=== PATIENT | male | born 1970 | race Caucasian/White ===

== ENCOUNTER 2024-08-23 10:27 | Outpatient (CLI) | payer BC, SELFPAY ==
--- OUTSIDE RECORDS SUMMARY | 2024-08-23 10:31 | XMS_ITS | Clinical Summary ---
Author Organization [facility] Address [place], [place] [address] Care Team Providers Care Bellman Name Role Phone Pcp, No Primary Care Provider Unavailabl e Allergies No known active allergies Medications Medication Sig Dispensed Refills Start Date End Date Status tiZANidine (ZANAFLEX) 2 mg tablet Take 2 tablets by mouth at bedtime. 0 05/09/2013 Active cyanocobalamin (VITAMIN B-12) 1,000 mcg tablet Take 2 tablets by mouth once daily. 0 09/06/2013 Active Potassium Gluconate 595 (99) mg tablet Take by mouth once daily. 0 09/06/2013 Active cholecalciferol (VITAMIN D) 1,000 unit capsule Take 2 capsules by mouth once daily. 0 09/06/2013 Active vitamin e 1,000 unit cap Take 1 capsule by mouth once daily. 0 09/06/2013 Active sildenafil citrate (VIAGRA) 50 mg tabletIndications:ED (erectile dysfunction) Take 1 tablet by mouth once daily if needed for Erectile Dysfunction. Take 30min to 4 hours before sexual activity. Max 100mg/24hr 5 tablet 5 09/06/2013 Active Active Problems Problem Noted Date Diagnosed Date Spastic paraplegia, hereditary Immunizations Name Administration Dates Next Due Influenza, IIV3 (Age >=3 years) 07/13/2013,08/21 Tdap 02/27/2009 Family History Medical History Relation Name Comments Other Father migrines Heart Disease Maternal Grandfather Cancer Maternal Grandmother ? type Other Mother spastic parapar esis Heart Disease Paternal Grandfather Relation Name Status Comments Father Maternal Grandfather Maternal Grandmother Mother Paternal Grandfather Social History Tobacco Use Types Packs/Day Years Used Date Smoking Tobacco: Never Smokeless Tobacco: Never Tobacco Cessation:Counseling Given: No Alcohol Use Standard Drinks/Week Comments Yes 3.3 (1 standard drink = 0.6 oz p ure alcohol) Sex and Gender Information Value Date Recorded Sex Assigned at Not on file Gender Identity Not on file Sexual Orientation Not on file Obstetrics History Last Filed Vital Signs Vital Sign Reading Time Taken Comments Blood Pressure 118/84 03/02/2014 11:39 AM CDT Pulse 78 03/02/2014 11:39 AM CDT Temperature 36.8 C (98.2 F) 03/02/2014 11:39 AM CDT Respiratory Rate - - Oxygen Saturation - - Inhaled Oxygen Concentration - - Weight 91.5 kg (201 lb 12.8 oz) 014 11:39 AM CDT Height 170.2 cm (5' 7) 05/09/2013 8:39 AM CDT Body Mass Index 31.61 05/09/2013 8:39 AM CDT Plan of Treatment Health Maintenance Due Date Last Done Comments Depression screening for age 12+ 1982 HIV for age 15-65 1985 BMI (ht and wt on same day) for age 18+ 1988 Hepatitis C screening for ag e 18-79 1988 Colonoscopy through age 75 2015 Lipids for age 45-75 05/09/2018 05/09/2013, 08/26/2010 Tetanus booster 02/27/2019 02/27/2009 Zoster (shingles) series for age 50+ (1 of 2) 2020 COVID-19 vaccine series ( - 2023-25 season) 2024 Influenza for age 50-64 06/04/2024 07/13/20 13, 08/21/2010 Tdap Completed 02/27/2009 Pneumococcal series for age 6-64 Aged Out No longer eligible b ased on patient's age to complete this topic Procedures Procedure Name Priority Date/Time Associated Diagnosis Comments LIPID PANEL Routine 05/09/2013 9:18 AM CDT Routine general medical examination at a health care facility Screening for lipoid disorders from Last 3 Months or Most Recently Relevant to Health Maintenance Results * (ABNORMAL) LIPID PANEL (05/09/2013 9:18 AM CDT) [facility] Sarah CHOLESTEROL,TOTA L 213(H) 100 - 199 mg/dL [facility] 85 <150 mg/dL [facility] HDL CHOLESTEROL 62 >40 mg/dL [facility] CHOL/HDL RATIO 3.44 <4.50 [facility] NON-HDL CHOLESTEROL 151 Undefined mg/dL [facility] LDL CHOLESTEROL 134(H) <131 mg/dL [facility] PATIENT STATUS Fasting [facility] Blood specimen (specimen) BLOOD SPECIMEN / Unknown 05/09/2013 9:18 AM CDT 05/09/2013 9:13 AM CDT Gustavo Dubose MD CHEMISTRY [facility] [place]IP [id number] [place] [id number] from Last 3 Months or Most Recently Relevant to Health Maintenance Care Teams Bellman Relationship Specialty Start Date End Date Pcp, No . PCP - General 04/09/15
--- OUTSIDE RECORDS SUMMARY | 2024-08-23 10:31 | XMS_ITS | Data Portability ---
Author Organization [place] - [facility], [facility] - OP Address [address] [place] [address] Assessment Encounter Date Assessment Date Assessment LastModified by Organization Details LastModified Time 05/25/2023 05/25/2023 Please answer th e following questions pertaining to the time that you had felt the most relief from the injection, even if it was very short term. The injection that you had was diagnostic, which means that it does not typically offer instructor dramatic arts relief. Even if you had 30 min of relief, please base your answers off of those 30 minutes. 1.) At the time that you felt the most relief from this injection what % of pain relief would you say you had? 100% relief at times. Morning are the best and pain increases by the evening. 2.) How would you have rated your pain on a scale of 0/10 prior to the injection? 3/10 3.) At the time that you had the most relief from this injection, how would you have rated your pain on a scale of 0/10? 0/10 4.) Have you noticed a change in your ADLs (activities of daily living)? Yes, pt is able to do all activities with less pain. 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 - All questions have been answered. We have talked about all the treatment options and have agreed upon the following: - Instructed to avoid strenuous activity and heavy lifting - Pain control: recommended course of OTC NSAIDs if no medical contraindications If pain persists, may inquire about Robaxin and Medrol Dose Pack (to take for 5 days straight) followed by Bruno by PCP - B/L L4-5, L5-S1 MBB RFA Nature of the surgery, risks, and alternatives were discussed with patient at length. All the questions were answered. Risks mentioned and discussed with patient included but were not limited to risk of neurological injury, vascular injury, infection, uncontrollable bleeding and excessive blood loss and hardware complications if they are used such as pedicle screw malpositioning. Possibility of persistent pain and unsuccessful outcome was discussed. Possibilities of medical complications such as heart attacks, pneumonia, stroke, kidney failure, blood clots and possibility of other types of unforeseeable complications were discussed. Given the persistent symptoms and disability patient would like to proceed with the proposed surgical intervention despite the potential risks involved with the proposed surgery. - All questions answered to the patient's satisfaction - Will call the clinic or return if any interim concerns - F/u for RFA with Dr Norma [email or web address] Not available 07/02/2023 10:57:34 09/28/2023 09/28/2023 Where are you currently residing for your post-op recovery? Patient is currently at home Have you noticed any increased warmth, swelling, or irritation at, or surrounding the incision site? Patient denies any increased warmth, swelling or irritation at the incision site Patient currently rate s pain at /10. 4-5/10 Would you say that your pain is reasonable and adequately controlled? Not different since before surgery. How often are you using pain medication? Current methods of pain relief include: Tylenol Q6hrs. Have you had a bowel movement since surgery? Yes Do you have any questions about how to take care of yourself or future follow-ups now that you are home? All questions answered Will schedule follow-up today. Reviewed signs and symptoms of infection with the patient. Addressed the importance of reaching out to the clinic if there is any increased pain or if any other problem arises. Discussed calling RX refill line at [phone] for any refills on prescribed medications, as well as allowing up to 3 business days for RX to be available for pick up operator at the pharmacy. Patient verbalized understanding. [email or web address] Not available 09/28/2023 11:39:50 10/25/2023 10/25/2023 Assessment: Clinical Dx PO: s/p 09/24/23 DIPAK L4/L5-L5/S1 RFA --> doing well, no complications Radiological Dx --> Mild L4-5 disc and advanced right/mild-moderate left facet degeneration, with ligamentous hypertrophy and 6 mm AP by 15 mm SI right intraspinal synovial cyst. 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 - at this point he has no symptoms - F/u with new MRI if symptoms persist Plan: -Discussed the patient's physical exam and reviewed their Radiographic and imaging with them in detail. - All questions have been answered. We have talked about all the treatment options and have agreed upon the following: - All questions answered to the patient's satisfaction - Will call the clinic or return if any interim concerns - Images: L MRI - Activities: WBAT, Instructed to BLTs, avoid strenuous activity and heavy lifting - referral for PM&R - Pain control: recommended course of OTC pain meds if no medical contraindications - FU: Patient to return clinic 3 weeks after PT with images to discuss results PRN. [email or web address] Not available 10/27/2023 12:36:21 Plan of Treatment Reminders Order Date Submit Date Provider Last Modified By Organization Details Last Modified Time Details Appointments None record ed. Lab None record ed. Referral None record ed. Procedures None record ed. Surgeries None record ed. Imaging None record ed. Medication Orders None record ed. Patient TargetsNo targets recorded. Patient InstructionsNo instructions recorded. Reason for Referral None Reported. 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 [employer] 09:20:16 Problem Notes None recorded. Procedures Surgical History Date Name Laterality Status Provider Name and Address Organization Details Recorded Time 06/18/20 23 Trigger Point Injection completed Marielle Green [place] [employer] 06/18/2023 13:00:57 06/04/20 23 Joint Injection cancelled Nathan SEYMOUR - [facility] 05/26/2023 14:09:29 05/21/20 23 Joint Injection completed Cinthia William [place] - [facility] 05/12/2023 11:51:26 10/21/19 23 Lumbar Acupuncture completed Siria Carter [place] - [facility] 10/21/2022 11:27:16 10/09/19 23 Lumbar Acupuncture completed Siria Carter [place] - [facility] 10/09/2022 12:55:27 09/14/20 22 Lumbar Acupuncture completed Edinson Diamond [place] - [facility] 09/14/2022 10:50:39 09/04/20 22 Lumbar Acupuncture completed Jesus Fleming [place] - [facility] 09/04/2022 10:33:33 08/26/20 22 Lumbar Acupuncture completed Edinson Diamond [place] - [facility] 08/26/2022 09:59:32 08/12/20 22 Lumbar Acupuncture completed Jesus Fleming [place] - [facility] 08/12/2022 17:18:05 07/22/20 22 Joint Injection completed Luis Armando Dee [place] - [facility] 07/29/2022 10:45:25 07/13/20 22 Joint Injection completed Luis Armando Dee [place] - [facility] 07/13/2022 17:58:53 Imaging Results None recorded. Procedure Notes None recorded. Medical Equipment None Reported. Allergies No known drug allergies Medications Name Sig Start Date Stop Date Status Note LastModified by Organization Details LastModified Time meloxicam 15 mg tablet TAKE ONE TABLET BY MOUTH EVERY DAY active Not Available Not Available No t Available prednisone 20 mg tablet TAKE 1 TABLET BY MOUTH TWICE A DAY FOR 30 DAYS active Not Available Not Available No t Available lidocaine 5 % topical patch active Not Available Not Available Not Available methylpredni solone 4 mg tablets in a dose pack TAKE BY MOUTH DIRECTED PER PACKAGE INSTRUCTION S active Not Available Not Available No t Available Vitals Date Recorded Body height Provider Name an d Address Organization Details Last Updated DateTime 06/04/2023 170.18 cm [facility] 06/04/2023 09:54:06 Date Recorded Body height Provider Name an d Address Organization Details Last Updated DateTime 06/18/2023 170.18 cm [facility] 06/18/2023 09:37:34 Date Recorded Body height Body mass index (BMI) Body weight Provider Name and Address Organization Details Last Updated DateTime 07/02/2023 170.18 cm 34.5 kg/m2 35779.32 g Sydnee Peraza [place] - [facility] 07/02/2023 09:10:34 Date Recorded Body height Body mass index (BMI) Body weight Provider Name and Address Organization Details Last Updated DateTime 10/25/2023 170.18 cm 35.2 kg/m2 083714.28 g Jennifer Andujar [place] - [facility] 10/25/2023 09:08:30 Social History Question Answer Notes LastModified by Organizat ion Details LastModified Time Tobacco Smoking Status Former Smoker Mona Borrego lorena [place] - [facility] 07/01/2022 09:24:15 What Is Your Level Of Alcohol Consumption? Moderate Information not available 07/01/2022 How Many Times Per Week Do You Consume Alcohol? 1-2 Times Per Week Information not available 04/05/2023 Are You Currently Employed? Yes Information not available 07/01/2022 What Is Your Occupation? [employer] Information not available 07/01/2022 When Did You Quit Smoking? 16+yearssince lastcigarette Information not available 07/01/2022 What Was The Date Of Your Most Recent Tobacco Screening? 07/02/2023 [email or web address] Information not available 07/02/2023 Do You Use Any Illicit Or Recreational Drugs? No Information not available 07/01/2022 Do You Or Have You Ever Used Any Other Forms Of Tobacco Or Nicotine? No Information not available 04/05/2023 Sex: Unknown Functional Status None recorded. Mental Status None recorded. Family History Relationship Description Onset Age of this Age Resolved Age Notes LastModified by Organization Details LastModified Time Maternal Grandfather Myocardial infarction [email or web address] Not available 07/01 09:20:43 Paternal Grandfather Myocardial infarction [email or web address] Not available 07/01 09:20:43 Medical History Condition Response Gout N Blood Diseases N Blood Transfusion N MRSA N Hernia N Head Trauma/Injury N Lung Disease N Depression N COPD N Developmental or Behavioral Disorders N Pacemaker N Difficulty Swallowing N Anesthesia Complications N Cystic Fibrosis N Anxiety Disorder N Muscle, Joint, or Bone Problems N Obesity N Vision or Eye Problems N Arthritis N Blood Clot N Stroke N Bladder or Kidney Problems N High Cholesterol N Headaches N Fibromyalgia N Allergies/Hayfever N Parkinson's Disease N Ear or Hearing Problems N Hospitalizations N GI Problems N ADD/ADHD N Skin Problems N Anemia N PTSD N Multiple Sclerosis N Meningitis N Heart Attack (AK) N Diabetes N Immunocompromised N Hepatitis/Liver Disease N Bleeding Disorder N Cancer/Tumors N Heart Murmur N Cerebral Palsy N AIDS/HIV N Congestive Heart Failure (CHF) N Abuse/Domestic Violence N Asthma N Peripheral Vascular Disease N Epilepsy/Seizures N AFib N Seizures N Reflux/GERD N Sleep Apnea N Thyroid Disorder N Aneurysm N Neuropathy N Pulmonary Embolism N Hypertension N Autism Spectrum Disorder (ASD) N Osteoporosis N Past Encounters Encounter ID Performer Location Encounter Start Date Encounter Closed Date Diagnosis/Indication Diagnosis SNOMED-CT Code Diagnosis ICD10 Code [id number] Luis Armando Dee [facility] [address] [place] [address] 07/01/2022 08:50:12 07/02/2022 15:00:38 Spastic paraparesis 329679731 G82.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 75816818 G11.4 Cauda equi na syndrome with neurogenic urinary bladder 80658208 G83.4 Myofascial pain syndrome of lumbar spine 1663450002 97043 M79.18 Arthritis of facet joint of lumbar spine 8803517766 9982212 M46.96 Low back pain 014453513 M43.06 M48.062 M71.38 [id number] Luis Armandoluis Dee [facility] [address] [place] [address] [place] [address] 07/13/2022 16:14:59 07/14/2022 08:59:12 [id number] Luis Armandoluis Dee [facility] [address] [place] [address] [place] [address] 07/22/2022 14:58:45 07/29/2022 11:29:53 [id number] Malu Chicas [facility] [address] [place] [address] [place] [address] 07/30/2022 09:51:13 07/31/2022 14:37:52 [id number] Luis Armando Dee [facility] [address] [place] [address] [place] [address] 08/14/2022 08:58:05 08/17/2022 14:22:20 Spastic paraparesis 741410146 G82.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 74758274 G11.4 Cauda equi na syndrome with neurogenic urinary bladder 30742155 G83.4 Myofascial pain syndrome of lumbar spine 2844895271 94154 M79.18 Arthritis of facet joint of lumbar spine 3936119147 9279911 M46.96 Low back pain 851836909 M43.06 M48.062 M71.38 [id number] Luis Armando Dee [facility] [address] [place] [address] [place] [address] 08/12/2022 15:52:35 08/14/2022 08:52:53 [id number] Luis Armando Dee [facility] [address] [place] [address] [place] [address] 08/26/2022 08:57:55 08/28/2022 15:04:53 [id number] Luis Armando Dee [facility] [address] [place] [address] [place] [address] 09/04/2022 09:27:13 09/04/2022 17:11:37 [id number] Luis Armando Dee [facility] [address] [place] [address] [place] [address] 09/14/2022 09:24:34 09/15/2022 13:47:22 [id number] Luis Armando Dee [facility] [address] [place] [address] [place] [address] 09/17/2022 09:39:27 09/21/2022 09:57:32 Spastic paraparesis 572809553 G82.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 57315462 G11.4 Cauda equi na syndrome with neurogenic urinary bladder 30205569 G83.4 Myofascial pain syndrome of lumbar spine 6500444078 80629 M79.18 Arthritis of facet joint of lumbar spine 7656274999 4765248 M46.96 Low back pain 985235395 M43.06 M48.062 M71.38 [id number] Evangelist Prieto MD [facility] [address] [place] [address] [place] [address] 09/21/2022 08:56:55 09/22/2022 10:07:08 Degeneration of intervertebral disc 96875258 M51.16 M51.26 M48.062 M47.896 M53.88 [id number] Luis Armando Dee [facility] [address] [place] [address] [place] [address] 10/09/2022 11:40:12 10/12/2022 10:57:46 [id number] Luis Armando Dee [facility] [address] [place] [address] [place] [address] 10/21/2022 10:24:58 10/22/2022 09:50:27 [id number] Luis Armando Dee [facility] [address] [place] [address] [place] [address] 11/02/2022 08:59:30 11/02/2022 16:18:58 Spastic paraparesis 502427270 G82.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 39030984 G11.4 Cauda equi na syndrome with neurogenic urinary bladder 03297283 G83.4 Myofascial pain syndrome of lumbar spine 6749683349 12972 M79.18 Arthritis of facet joint of lumbar spine 8176870573 7772892 M46.96 Low back pain 667201460 M43.06 M48.062 M71.38 [id number] Luis Armando Dee [facility] [address] [place] [address] [place] [address] 12/07/2022 09:22:20 12/07/2022 17:36:43 Spastic paraparesis 588150372 G82.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 33164586 G11.4 Cauda equi na syndrome with neurogenic urinary bladder 07442978 G83.4 Myofascial pain syndrome of lumbar spine 2853601191 94031 M79.18 Arthritis of facet joint of lumbar spine 2787681142 3845282 M46.96 Low back pain 938979205 M43.06 M48.062 M71.38 [id number] Luis Armando Dee [facility] [address] [place] [address], [place] [address] 01/18/2023 09:27:31 01/19/2023 09:29:59 Spastic paraparesis 994416015 G82.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 56673595 G11.4 Cauda equi na syndrome with neurogenic urinary bladder 93867622 G83.4 Myofascial pain syndrome of lumbar spine 4506383766 17597 M79.18 Arthritis of facet joint of lumbar spine 4221627606 3920807 M46.96 Low back pain 929206030 M43.06 M48.062 M71.38 [id number] Sydnee bautista [facility] [address] [place] [address], [place] [address] 04/05/2023 09:34:21 04/07/2023 11:37:24 Chronic low back pain 918124644 M54.50 M51.36 [id number] Kessiena Aya [facility] [address] [place] [address], [place] [address] 05/21/2023 09:19:52 05/24/2023 08:58:17 [id number] Kylah Em [facility] [address] [place] [address], [place] [address] 05/28/2023 16:31:49 05/28/2023 16:35:54 [id number] Kessiena Aya [facility] [address] [place] [address], [place] [address] 06/18/2023 08:56:03 06/21/2023 10:43:31 [id number] Kessiena Aya [facility] [address] [place] [address], [place] [address] 07/02/2023 08:51:39 07/02/2023 12:52:47 [id number] NELDA CARDOSO [facility] [address] [place] [address] [place], [place] [address] 09/28/2023 11:37:35 09/28/2023 11:47:14 [id number] Onofresavmanish Green [facility] [address] [place] [address] [place], [place] [address] 10/25/2023 08:51:51 10/26/2023 10:01:47 Health Concerns Section Related Observation LastModified by Organization Detai ls LastModified Time None Recorded Concern Status LastModified by Organization Details LastModified Time None Recorded Advance Directives Directive None Recorded Payers Encounter Date Sequence Insurance Name Policy Number Policy Albert Covered Member ID Albert Member ID Guarantor Name 05/25/2023 1 [place] [id number] Kevon Thomas [id number] Kevon Thomas 06/18/2023 1 [place] [id number] Kevon Thomas [id number] Kevon Thomas 07/02/2023 [place] [id number] Kevon Thomas [id number] Kevon Thomas 09/28/2023 1 [place] [id number] Kevon Thomas [id number] Kevon Thomas 10/25/2023 1 [place] [id number] Kevon Thomas [id number] Kevon William Notes Date Note Type Note Provider Name and Address Organization Details Recorded Time 07/02/2023 text/html Chief Complaint: F/u S/p MBB inj x 2 History of Present Illness:The patient presents as a follow up. He states that the injections provided significant pain relief, however the pain has now re-occurred and limits his ability to do ADLs and PT. He now has persistent lower back pain, including intermittent shooting sensations down the right leg. Patient experienced minimal tenderness at the injection site of a recent procedure. Although the pain initially subsided, it has since returned, fluctuating between minimal to moderate intensity, and generally worsening at nighttime.No red flag signs/symptoms. No constitutional symptoms. No significant changes in medical condition. No other complaints voiced HPI 04/05/23The patient is a 52 year old male who presents for initial evaluation of low back pain.Today the patient reports fluctuating low back pain rated 3/10 that radiates down the anterior right leg and groin. Standing and walking a few steps aggravates, sitting alleviates. (R>L) LBP> groin pain. The pain has persisted for years but worsened April 2022. Patient reports hearing crackles in low back when he is lying down and turns, but there is no pain. He ambulates with two walking sticks. HE does not use them alot at home; Patient reports attending PT at [facility] weekly that provides some relief. Patient also attends chiropractic therapy once month and hasn't notice a difference. Patient denies cauda equina syndrome. 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 Interval events (since 12/07/22):Today the patient reports that he has been going to physical therapy for PT but reports that he has not done any gait training. He reports that he has been going to [facility] in [place]. He states his therapists are Adalid and Chanel. He reports that he was able to get up and use the restroom at a restaurant without his walking sticks around 6 weeks ago. He also reports that he fell around 8 weeks ago when his stick slipped on the floor. Previous HPI from 09/17/22:Today the patient reports low back pain rated 2-3/10. He notes some improvement over the past several weeks, with soreness most significant upon waking up in the morning. He typically alleviates his soreness by soaking in his jacuzzi. Overall he notes slight improvement in his pain, and he would like to maintain his already scheduled acupuncture visits, as well as his already scheduled appointment with Dr. Prieto. The patient has now done 6 weeks of PT, twice weekly (12 sessions total).Previous HPI from 11/02/22:Today the patient reports low back pain rated 1/10. He attributes the majority of his pain reduction to holistic approaches, and also reports continued PT. He has also received TPI and acupuncture since his last visit. The patient also followed with Dr. Prieto on 09/21. He is very happy with his pain management regimen at this point. The patient notes minimal pain reduction from acupuncture, but reports pain relief from other approaches.Interval Events:The patient states generally that his pain has been improved and more manageable. He rates his pain at 1-2/10. He states that he has been going on trips over several weekends which can cause his pain to spike but after a day or two the pain decreases. The patient states that his walking has not changed secondary to his pre-existing condition but has been trying to increase weight bearing on the legs and low back. He states he has been attending PT. The patient reports significant muscle tightness and nightly cramping in the bilateral calves. Marielle carrillo [employer] 07/02/2023 10:57:37 10/25/2023 text/html F/uPO: s/p 09/24 DIPAK L4/L5-L5/S1 RFA: L MR (06/15/22) in [place]: PT, Chiro, INJ: LBP HPI Patient reports intermittent soreness and pain persisting after a Radiofrequency Ablation (RFA) procedure, with pain radiating down the right leg. The patient states that the pain was more noticeable in the first few days following the RFA procedure but improved slightly with time. Pain intensity today is a 2 to 3 out of 10, with the worst being a 3 out of 10. Since the procedure, the patient has not required any pain medication beyond Tylenol, last taken about a month after the procedure. The patient has a neurological condition that necessitates a more intensive regimen of stretches and therapy to maintain baseline functionality. The patient's pain consistently radiates down the right side. No red flag signs/symptoms. No constitutional symptoms. No significant changes in medical condition. No other complaints voiced Marielle carrillo [place] [employer] 10/27/2023 12:36:25
== END 2024-08-23 10:28 | disposition home or self-care (01) ==
LOC: LKVREF 10:28
PROVIDERS: PCP Nurse Practitioner Family; Visit Provider Nurse Practitioner Family
DX: Z00.00 Encounter for general adult medical examination without abnormal findings (principal); I10 Essential (primary) hypertension; Z13.6 Encounter for screening for cardiovascular disorders; Z12.5 Encounter for screening for malignant neoplasm of prostate
CPT/HCPCS: 80053; 80061; G0103

== ENCOUNTER 2024-09-01 13:25 | Outpatient (CLI) | payer BC, SELFPAY ==
--- OUTSIDE RECORDS SUMMARY | 2024-09-01 13:27 | XMS_ITS | Data Portability ---
Author Organization [place] - [facility], [facility] - OP Address [address] [place] [address] Assessment Encounter Date Assessment Date Assessment LastModified by Organization Details LastModified Time 05/25/2023 05/25/2023 Please answer th e following questions pertaining to the time that you had felt the most relief from the injection, even if it was very short term. 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 Even if you had 30 min [...] arises. Discussed calling RX refill line at [phone] for any refills on prescribed medications, as well as allowing up to 3 business days for RX to be available for orange picker at the pharmacy. Patient verbalized understanding. 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 Procedures Surgical History Date Name Laterality Status Provider Name and Address Organization Details Recorded Time 06/18/20 23 Trigger Point Injection completed Marielle Green [place] [facility] 06/18/2023 13:00:57 06/04/20 23 Joint Injection cancelled Nathan SEYMOUR - [facility] 05/26/2023 14:09:29 05/21/20 23 Joint Injection completed Cinthia William [place] - [facility] 05/12/2023 11:51:26 10/21/19 23 Lumbar Acupuncture completed Siria Carter [place] - [facility] 10/21/2022 11:27:16 10/09/19 23 Lumbar Acupuncture completed Siria Carter [place] - [facility] 10/09/2022 12:55:27 09/14/20 22 Lumbar Acupuncture completed Edinson Diamond [place] - [facility] 09/14/2022 10:50:39 09/04/20 22 Lumbar Acupuncture completed Jesus Fleming [place] - [facility] 09/04/2022 10:33:33 08/26/20 22 Lumbar Acupuncture completed Edinson Diamond [place] - [facility] 08/26/2022 09:59:32 08/12/20 22 Lumbar Acupuncture completed Jesus Fleming [place] [facility] 08/12/2022 17:18:05 07/22/20 22 Joint Injection completed Luis Armando Dee [place] [facility] 07/29/2022 10:45:25 07/13/20 22 Joint Injection completed Luis Armando Dee [place] [facility] 07/13/2022 17:58:53 [...] Details Last Updated DateTime 06/04/2023 170.18 cm [facility] 06/04/2023 09:54:06 Date Recorded Body height Provider Name an d Address Organization Details Last Updated DateTime 06/18/2023 170.18 cm [facility] 06/18/2023 09:37:34 Date Recorded Body height Body mass index (BMI) Body weight Provider Name and Address Organization Details Last Updated DateTime 07/02/2023 170.18 cm 34.5 kg/m2 97089.32 g Sydnee Peraza [place] - [facility] 07/02/2023 09:10:34 Date Recorded Body height Body mass index (BMI) Body weight Provider Name and Address Organization Details Last Updated DateTime 10/25/2023 170.18 cm 35.2 kg/m2 449459.28 g Jennifer Andujar [place] - [facility] 10/25/2023 09:08:30 Social [...] Condition Response Gout N Blood Diseases N MRSA N Blood Transfusion N Hernia N Head Trauma/Injury N Lung [...] Multiple Sclerosis N Meningitis N Heart Attack ([place]) N Diabetes N Immunocompromised N Hepatitis/Liver Disease [...] Diagnosis/Indication Diagnosis SNOMED-CT Code Diagnosis ICD10 Code [id number] Luis Armando Dee [facility] [address] [place] [address] 07/01/2022 08:50:12 07/02/2022 15:00:38 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 Cauda equi na syndrome with neurogenic urinary bladder 00343868 G83.4 Myofascial pain syndrome of lumbar spine 9175425407 03318 M79.18 Arthritis of facet joint of lumbar spine 0016511961 8627224 M46.96 Low back pain 062731051 M43.06 M48.062 M71.38 [id number] Luis Armandoluis Dee [facility] [address] [place] [address] [place] [address] 07/13/2022 16:14:59 07/14/2022 08:59:12 [id number] Luis Armandoluis Dee [facility] [address] [place] [address] [place] [address] 07/22/2022 14:58:45 07/29/2022 11:29:53 [id number] Malu Chicas [facility] [address] [place] [address] [place] [address] 07/30/2022 09:51:13 07/31/2022 14:37:52 [id number] Luis Armando Dee [facility] [address] [place] [address] [place] [address] 08/14/2022 08:58:05 08/17/2022 14:22:20 Spastic paraparesis 630233685 G82.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 37895082 G11.4 Cauda equi na syndrome with neurogenic urinary bladder 60103228 G83.4 Myofascial pain syndrome of lumbar spine 5398151244 55974 M79.18 Arthritis of facet joint of lumbar spine 4470672780 6894083 M46.96 Low back pain 455696745 M43.06 M48.062 M71.38 [id number] Luis Armando Dee [facility] [address] [place] [address] [place] [address] 08/12/2022 15:52:35 08/14/2022 08:52:53 [id number] Luis Armando Dee [facility] [address] [place] [address] [place] [address] 08/26/2022 08:57:55 08/28/2022 15:04:53 [id number] Luis Armando Dee [facility] [address] [place] [address] [place] [address] 09/04/2022 09:27:13 09/04/2022 17:11:37 [id number] Luis Armando Dee [facility] [address] [place] [address] [place] [address] 09/14/2022 09:24:34 09/15/2022 13:47:22 [id number] Luis Armando Dee [facility] [address] [place] [address] [place] [address] 09/17/2022 09:39:27 09/21/2022 09:57:32 Spastic paraparesis 488824510 G82.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 13581209 G11.4 Cauda equi na syndrome with neurogenic urinary bladder 06879406 G83.4 Myofascial pain syndrome of lumbar spine 5979497654 62731 M79.18 Arthritis of facet joint of lumbar spine 2243601207 1777332 M46.96 Low back pain 826186100 M43.06 M48.062 M71.38 [id number] Evangelist Prieto MD [facility] [address] [place] [address] [place] [address] 09/21/2022 08:56:55 09/22/2022 10:07:08 Degeneration of intervertebral disc 72678924 M51.16 M51.26 M48.062 M47.896 M53.88 [id number] Luis Armando Dee [facility] [address] [place] [address] [place] [address] 10/09/2022 11:40:12 10/12/2022 10:57:46 [id number] Luis Armando Dee [facility] [address] [place] [address] [place] [address] 10/21/2022 10:24:58 10/22/2022 09:50:27 [id number] Luis Armando Dee [facility] [address] [place] [address] [place] [address] 11/02/2022 08:59:30 11/02/2022 16:18:58 Spastic paraparesis 647551767 G82.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 46146469 G11.4 Cauda equi na syndrome with neurogenic urinary bladder 56179231 G83.4 Myofascial pain syndrome of lumbar spine 8029625076 73981 M79.18 Arthritis of facet joint of lumbar spine 7829151056 2828153 M46.96 Low back pain 055308420 M43.06 M48.062 M71.38 [id number] Luis Armando Dee [facility] [address] [place] [address] [place] [address] 12/07/2022 09:22:20 12/07/2022 17:36:43 Spastic paraparesis 626327784 G82.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 29868802 G11.4 Cauda equi na syndrome with neurogenic urinary bladder 88744672 G83.4 Myofascial pain syndrome of lumbar spine 9436626887 66489 M79.18 Arthritis of facet joint of lumbar spine 7511869896 3209453 M46.96 Low back pain 377841969 M43.06 M48.062 M71.38 [id number] Luis Armando Dee [facility] [address] [place] [address], [place] [address] 01/18/2023 09:27:31 01/19/2023 09:29:59 Spastic paraparesis 393753026 G82.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 04829372 G11.4 Cauda equi na syndrome with neurogenic urinary bladder 82238164 G83.4 Myofascial pain syndrome of lumbar spine 5053068231 41586 M79.18 Arthritis of facet joint of lumbar spine 9380177724 7990083 M46.96 Low back pain 548487057 M43.06 M48.062 M71.38 [id number] Sydnee bautista [facility] [address] [place] [address], [place] [address] 04/05/2023 09:34:21 04/07/2023 11:37:24 Chronic low back pain 815537404 M54.50 M51.36 [id number] Kessiena Aya [facility] [address] [place] [address], [place] [address] 05/21/2023 09:19:52 05/24/2023 08:58:17 [id number] Kylah Em [facility] [address] [place] [address], [place] [address] 05/28/2023 16:31:49 05/28/2023 16:35:54 [id number] Kessiena Aya [facility] [address] [place] [address], [place] [address] 06/18/2023 08:56:03 06/21/2023 10:43:31 [id number] Kessiena Aya [facility] [address] [place] [address], [place] [address] 07/02/2023 08:51:39 07/02/2023 12:52:47 [id number] NELDA CARDOSO [facility] [address] [place] [address] [place], [place] [address] 09/28/2023 11:37:35 09/28/2023 11:47:14 [id number] Onofresavmanish Green [facility] [address] [place] [address] [place], [place] [address] 10/25/2023 08:51:51 10/26/2023 10:01:47 Health Concerns Section Related Observation LastModified by Organization Detai ls LastModified Time None Recorded Concern Status LastModified by Organization Details LastModified Time None Recorded Advance Directives Directive None Recorded Payers Encounter Date Sequence Insurance Name Policy Number Policy Albert Covered Member ID Albert Member ID Guarantor Name 05/25/2023 1 [place] [id number] Kevon Thomas [id number] Kevon Thomas 06/18/2023 1 [place] [id number] Kevon Thomas [id number] Kevon Thomas 07/02/2023 1 [place] [id number] Kevon Thomas [id number] Kevon Thomas 09/28/2023 1 [place] [id number] Kevon Thomas [id number] Kevon Thomas 10/25/2023 1 [place] [id number] Kevon Thomas [id number] Kevon William Notes Date Note Type [...] reports that he has been going to [facility] in [place]. He states his therapists are Adalid and [...] cramping in the bilateral calves. Marielle carrillo [employer] 07/02/2023 10:57:37 10/25/2023 text/html F/uPO: s/p 09/24 [...] condition. No other complaints voiced Marielle carrillo [place] [facility] 10/27/2023 12:36:25
--- OUTSIDE RECORDS SUMMARY | 2024-09-01 13:27 | XMS_ITS | Clinical Summary ---
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 Name Role Phone Pcp, No Primary Care [...] (ABNORMAL) LIPID PANEL (05/09/2013 9:18 AM CDT) [facility] Sarah CHOLESTEROL,TOTA L 213(H) 100 - 199 mg/dL [facility] TRIGLYCERIDES 85 <150 mg/dL [facility] HDL CHOLESTEROL 62 >40 mg/dL [facility] CHOL/HDL RATIO 3.44 <4.50 [facility] NON-HDL CHOLESTEROL 151 Undefined mg/dL [facility] LDL CHOLESTEROL 134(H) <131 mg/dL [facility] PATIENT STATUS Fasting [facility] Blood specimen (specimen) BLOOD SPECIMEN / Unknown 05/09/2013 9:18 AM CDT 05/09/2013 9:13 AM CDT Gustavo Dubose MD CHEMISTRY [facility] INTERNAL ZIP [id number] [place] [id number] from Last 3 Months or Most Recently Relevant to Health Maintenance Care Teams Hand Stone Polisher Relationship Specialty Start Date End Date Pcp, No . PCP - General 04/09/15
--- NOTE | 2024-09-01 13:45 | CRLHL7_ITS ---
For Patients: As a result of the Century Cures Act, medical imaging exams and procedure reports are released immediately into your electronic medical record. You may view this report before your referring provider. If you have questions, please contact your health care provider. INDICATION: Low back pain. Spinal stenosis. TECHNIQUE: Noncontrast sagittal and axial T1, T2, and sagittal STIR sequences are provided. No comparisons. FINDINGS: The overall stature, alignment and intrinsic marrow signal of the lumbar spine is within normal limits. Conus is normal. There is a 4.8 centimeter cystic lesion of the superior pole the right kidney likely representing a simple renal cyst. L1-2, L2-3, L3-4: Unremarkable. L4-5: Mild broad-based posterior disc bulge with moderate bilateral facet arthropathy results in severe central canal and bilateral lateral recess narrowing. Neural foramina are patent. L5-S1: Moderate bilateral facet arthropathy with mild broad-based posterior disc bulge results in moderate to severe bilateral lateral recess narrowing with compression of the traversing S1 nerve roots. Moderate left and mild right foraminal narrowing with moderate central canal narrowing. IMPRESSION: 1. Severe central canal and bilateral lateral recess narrowing at L4-5. 2. Moderate central canal narrowing with moderate to severe bilateral lateral recess narrowing at L5-S1 with moderate left and mild right foraminal narrowing. Dictated by Sanjiv Reno MD @ 09/01/2024 4:16:01 PM (Electronically Signed)
--- NOTE | 2024-09-01 14:30 | CRLHL7_ITS ---
For Patients: As a result of the Century Cures Act, medical imaging exams and procedure reports are released immediately into your electronic medical record. You may view this report before your referring provider. If you have questions, please contact your health care provider. INDICATION: Neck pain TECHNIQUE: Noncontrast sagittal T1, T2, STIR and axial GRE sequences are provided. No comparisons. FINDINGS: The overall stature, alignment and intrinsic marrow signal of the cervical spine is within normal limits. Cervical cord is normal. C2-3, C3-4: Unremarkable. C4-5: Uncovertebral joint and facet arthropathy results in mild bilateral foraminal narrowing with no central canal narrowing. C5-6: Unremarkable. C6-7: Asymmetric uncovertebral joint and facet arthropathy results in mild left and no right foraminal narrowing. No central canal narrowing. C7-T1: Unremarkable. IMPRESSION: 1. Mild bilateral C4-5 foraminal narrowing. 2. Mild left C6-7 foraminal narrowing. Dictated by Sanjiv Reno MD @ 09/01/2024 4:13:07 PM (Electronically Signed)
== END 2024-09-01 13:26 | disposition home or self-care (01) ==
PROVIDERS: PCP Nurse Practitioner Family; Visit Provider Nurse Practitioner Family
DX: M54.2 Cervicalgia (principal); M50.221 Other cervical disc displacement at C4-C5 level; M50.223 Other cervical disc displacement at C6-C7 level; M54.50 Low back pain, unspecified; M51.26 Other intervertebral disc displacement, lumbar region; M51.27 Other intervertebral disc displacement, lumbosacral region; M48.061 Spinal stenosis, lumbar region without neurogenic claudication
CPT/HCPCS: 72141; 72148

== ENCOUNTER 2024-09-25 08:28 | Outpatient (CLI) | payer BC, SELFPAY ==
--- NOTE | 2024-09-25 09:37 | W.ANESCHARGE ---
Anesthesia Charges Start Date/Time Anesthesia Start Date: 09/25/24 Anesthesia Start Time: 09:10 Stop Date/Time Anesthesia Stop Date: 09/25/24 Anesthesia Stop Time: 09:34
== END 2024-09-25 08:29 | disposition home or self-care (01) ==
LOC: OP CLINIC 08:28
PROVIDERS: PCP Nurse Practitioner Family; Visit Provider Internal Medicine
DX: Z12.11 Encounter for screening for malignant neoplasm of colon (principal); K57.30 Diverticulosis of large intestine without perforation or abscess without bleeding
CPT/HCPCS: 00812; 45378; J2704